=== PATIENT | female | born 1995 | race Caucasian/White ===

== ENCOUNTER 2022-04-06 16:14 | Emergency (ER) | payer OTHER | END 2022-04-06 19:35 | disposition left against medical advice (07) | LOC: ER1 16:14 | DX: Z53.21 Procedure and treatment not carried out due to patient leaving prior to being seen by health care provider (principal) ==

== ENCOUNTER 2022-04-09 17:17 | Emergency (ER) | payer OTHER ==
[2022-04-09 18:08] LABS: HEMOGLOBIN 12.5 gm/dl (12.3-15.3); RED BLOOD COUNT 4.32 M/UL (4.00-5.10); WHITE BLOOD COUNT 9.6 K/UL (4.5-11.0)
[2022-04-09 18:59] LABS: BUN/CREATININE RATIO 14 (0-10)
== END 2022-04-09 21:30 | disposition home or self-care (01) ==
LOC: ER1 17:17
PROVIDERS: Family Medicine
DX: R07.89 Other chest pain (principal); I10 Essential (primary) hypertension; Z79.899 Other long term (current) drug therapy
CPT/HCPCS: 71045; 80053; 82550; 82553; 84484; 85025; 93005; 99285